=== PATIENT | female | born 1980 | race Caucasian/White ===

== ENCOUNTER 2022-04-16 11:12 | Day surgery (SDC) | payer OTHER ==
[2022-04-16] MEDS ORDERED: Xylocaine 1% Vial 30 ML PF IJ ONE (11:13)
[2022-04-16] MEDS ORDERED: Decadron 4 MG INJ IV ONE (11:13)
[2022-04-16] MEDS ORDERED: Sodium Chloride 0.9(Preservative Free) 10 ML IJ ONE (11:13)
[2022-04-16] MEDS ORDERED: Depo-Medrol 40 MG/ML IM ONE (11:13)
[2022-04-16] MEDS ORDERED: DIPRIVAN 200 MG/20 ML IV ONE (12:41)
[2022-04-16] MEDS ORDERED: Lactated Ringers 1,000 ML IV ONE (12:50)
--- NOTE | 2022-04-16 13:19 | XRAY ---
Indication: Bilateral piriformis injections. Intraoperative fluoroscopy provided for 29 seconds. 2 digital spot image submitted for interpretation demonstrates posterior needle tip projecting over the expected left and right piriformis muscle. Small amount of contrast injected for both needle tip placement. Correlate with intraoperative findings/report.
--- NOTE | 2022-04-16 13:19 | XRAY ---
Indication: Left L4-S1 transforaminal GEOFFREY. Intraoperative fluoroscopy provided for 17 seconds. 4 digital spot image submitted for interpretation demonstrates posterior needle tips projecting over the expected left L4 and L5 nerve roots. Small amount of contrast injected for needle tip placement. Correlate with intraoperative findings/report.
--- NOTE | 2022-04-16 14:28 | XRAY ---
29 seconds of fluoroscopy was used in surgery for bilateral piriformis injections.
--- NOTE | 2022-04-16 14:28 | XRAY ---
17 seconds of fluoroscopy was used in surgery for a left L4-S1 transforaminal GEOFFREY.
== END 2022-04-16 13:20 | disposition home or self-care (01) ==
LOC: SDC-PAIN 11:12
PROVIDERS: ATTEND Psychiatry & Neurology Pain Medicine
DX: M79.18 Myalgia, other site (principal); M54.16 Radiculopathy, lumbar region; R73.03 Prediabetes; Z79.899 Other long term (current) drug therapy
CPT/HCPCS: 20552; 64483; 64484; 72100; 72170; 77002; 77003; 81025; 82947; J1030; J1100; J2001; J2704

== ENCOUNTER 2022-05-15 09:13 | Day surgery (SDC) | payer OTHER ==
[2022-05-15] MEDS ORDERED: LIDOCAINE HCL 1% 50 MG/5 ML VL PF IJ ONE (09:14)
[2022-05-15] MEDS ORDERED: Pepcid 20 MG VIAL IV ONE (09:14)
[2022-05-15] MEDS ORDERED: Reglan 10 MG/2 ML ONE (10:38)
[2022-05-15] MEDS ORDERED: DIPRIVAN 200 MG/20 ML IV ONE (10:59)
--- NOTE | 2022-05-15 11:58 | XRAY ---
Indication: Bilateral L4-S1 MBB. Intraoperative fluoroscopy provided for 11 seconds. 2 digital spot image submitted for interpretation demonstrates posterior needle tips projecting over the expected left and right L4-S1 nerve roots. Correlate with intraoperative findings/report.
--- NOTE | 2022-05-15 12:40 | XRAY ---
11 seconds of fluoroscopy was used in surgery for a bilateral L4-S1 MBB.
[2022-05-15] MEDS ORDERED: Lactated Ringers 1,000 ML IV ONE (13:29)
== END 2022-05-15 11:25 | disposition home or self-care (01) ==
LOC: SDC-PAIN 09:13
PROVIDERS: ATTEND Psychiatry & Neurology Pain Medicine
DX: M47.816 Spondylosis without myelopathy or radiculopathy, lumbar region (principal); E11.9 Type 2 diabetes mellitus without complications; Z79.899 Other long term (current) drug therapy
CPT/HCPCS: 64493; 64494; 72020; 77002; 81025; 82947; J2001; J2704

== ENCOUNTER 2022-07-23 07:59 | Day surgery (SDC) | payer OTHER ==
[2022-07-23] MEDS ORDERED: BUPIVACAINE 0.5% VIAL IJ ONE (08:00)
[2022-07-23] MEDS ORDERED: Reglan 10 MG/2 ML ONE (09:06)
[2022-07-23] MEDS ORDERED: Pepcid 20 MG VIAL IV ONE (09:06)
[2022-07-23] MEDS ORDERED: DIPRIVAN 200 MG/20 ML IV ONE (10:03)
[2022-07-23] MEDS ORDERED: Xylocaine-Mpf 2% 5 Ml Vial ONE (10:06)
--- NOTE | 2022-07-23 11:31 | XRAY ---
Indication: Bilateral L4-S1 MBB. Intraoperative fluoroscopy provided for 10 seconds. Single digital spot image submitted for interpretation demonstrates posterior needle tips projecting over the expected left and right L4-S1 nerve roots. Correlate with intraoperative findings/report.
--- NOTE | 2022-07-23 11:36 | XRAY ---
10 seconds of fluoroscopy was used in surgery for a bilateral L4-S1 MBB.
[2022-07-23] MEDS ORDERED: Lactated Ringers 1,000 ML IV ONE (13:54)
== END 2022-07-23 10:40 | disposition home or self-care (01) ==
LOC: SDC-PAIN 07:59
PROVIDERS: ATTEND Psychiatry & Neurology Pain Medicine
DX: M47.816 Spondylosis without myelopathy or radiculopathy, lumbar region (principal); R73.03 Prediabetes; Z79.899 Other long term (current) drug therapy
CPT/HCPCS: 64493; 64494; 72020; 77002; 81025; 82947; J2704

== ENCOUNTER 2022-09-24 08:40 | Day surgery (SDC) | payer OTHER ==
[2022-09-24] MEDS ORDERED: BUPIVACAINE 0.5% VIAL IJ ONE (08:41)
[2022-09-24] MEDS ORDERED: LIDOCAINE HCL 1% 50 MG/5 ML VL PF IJ ONE (08:41)
[2022-09-24] MEDS ORDERED: Depo-Medrol 40 MG/ML IM ONE (08:41)
[2022-09-24 08:52] LABS: HCG URINE TEST NEGATIVE (NEGATIVE)
[2022-09-24] MEDS ORDERED: Reglan 10 MG/2 ML ONE (09:41)
[2022-09-24] MEDS ORDERED: Pepcid 20 MG VIAL IV ONE (09:41)
[2022-09-24] MEDS ORDERED: DIPRIVAN 200 MG/20 ML IV ONE ×2 (10:25→12:27)
--- NOTE | 2022-09-24 12:24 | XRAY ---
Indication: Right L4-S1 RFA. Intraoperative fluoroscopy provided for 26 seconds. 3 digital spot images submitted for interpretation demonstrates posterior needle tips projecting over the expected right L4-S1 nerve roots. Correlate with intraoperative findings/report.
--- NOTE | 2022-09-24 12:41 | XRAY ---
26 seconds of fluoroscopy was used in surgery for a right L4-S1 RFA.
[2022-09-24] MEDS ORDERED: Lactated Ringers 1,000 ML IV ONE (14:04)
== END 2022-09-24 11:00 | disposition home or self-care (01) ==
LOC: SDC-PAIN 08:40
PROVIDERS: ATTEND Psychiatry & Neurology Pain Medicine
DX: M47.816 Spondylosis without myelopathy or radiculopathy, lumbar region (principal); R73.03 Prediabetes; Z79.899 Other long term (current) drug therapy
CPT/HCPCS: 36415; 64635; 64636; 72100; 77002; 81025; 82947; J1030; J2001; J2704

== ENCOUNTER 2022-10-01 08:36 | Day surgery (SDC) | payer OTHER ==
[2022-10-01] MEDS ORDERED: Depo-Medrol 40 MG/ML IM ONE (08:37)
[2022-10-01] MEDS ORDERED: LIDOCAINE HCL 1% 50 MG/5 ML VL PF IJ ONE (08:37)
[2022-10-01] MEDS ORDERED: BUPIVACAINE 0.5% VIAL IJ ONE (08:37)
[2022-10-01] MEDS ORDERED: Reglan 10 MG/2 ML ONE (09:02)
[2022-10-01] MEDS ORDERED: Pepcid 20 MG VIAL IV ONE (09:02)
[2022-10-01 09:05] LABS: HCG URINE TEST NEGATIVE (NEGATIVE)
[2022-10-01] MEDS ORDERED: DIPRIVAN 200 MG/20 ML IV ONE (09:41)
[2022-10-01] MEDS ORDERED: Lactated Ringers 1,000 ML IV ONE (11:55)
--- NOTE | 2022-10-01 18:20 | XRAY ---
Indication: Left L4-S1 RFA. Intraoperative fluoroscopy provided for 21 seconds. 4 digital spot image submitted for interpretation demonstrates posterior needle tips projecting over the expected left L4-S1 nerve roots. Correlate with intraoperative findings/report.
--- NOTE | 2022-10-01 19:01 | XRAY ---
21 seconds of fluoroscopy was used in surgery for a left L4-S1 RFA.
== END 2022-10-01 10:15 | disposition home or self-care (01) ==
LOC: SDC-PAIN 08:36
PROVIDERS: ATTEND Psychiatry & Neurology Pain Medicine
DX: M47.817 Spondylosis without myelopathy or radiculopathy, lumbosacral region (principal); R73.03 Prediabetes; Z79.899 Other long term (current) drug therapy
CPT/HCPCS: 36415; 64635; 64636; 72100; 77002; 81025; 82947; J1030; J2001; J2704

== ENCOUNTER 2023-07-22 09:00 | Day surgery (SDC) | payer OTHER ==
[2023-07-22] MEDS ORDERED: LIDOCAINE HCL 2% 100 MG/5 ML IJ ONE (09:01)
[2023-07-22 09:52] LABS: HCG URINE TEST NEGATIVE (NEGATIVE)
[2023-07-22] MEDS ORDERED: Lactated Ringers 1,000 ML IV ONE (10:54)
[2023-07-22] MEDS ORDERED: DIPRIVAN 200 MG/20 ML IV ONE ×2 (10:59→11:11)
--- NOTE | 2023-07-22 11:28 | XRAY ---
Indication: Left C2-C4 MBB. Intraoperative fluoroscopy provided for 27 seconds. 3 digital spot image submitted for interpretation demonstrates posterior needle tips projecting over the expected left C2-C4 nerve roots. Correlate with intraoperative findings/report.
--- NOTE | 2023-07-22 12:06 | XRAY ---
27 seconds of fluoroscopy was used in surgery for a left C2-C4 MBB.
== END 2023-07-22 11:35 | disposition home or self-care (01) ==
LOC: SDC-PAIN 09:00
PROVIDERS: ATTEND Psychiatry & Neurology Pain Medicine
DX: M47.812 Spondylosis without myelopathy or radiculopathy, cervical region (principal); R73.03 Prediabetes
CPT/HCPCS: 64490; 64491; 72040; 77002; 81025; 82947; J2704

== ENCOUNTER 2023-11-04 07:54 | Day surgery (SDC) | payer OTHER ==
[2023-11-04] MEDS ORDERED: BUPIVACAINE 0.5% VIAL IJ ONE (07:55)
[2023-11-04 08:42] LABS: HCG URINE TEST NEGATIVE (NEGATIVE)
[2023-11-04] MEDS ORDERED: DIPRIVAN 200 MG/20 ML IV ONE ×2 (09:53→10:02)
--- NOTE | 2023-11-04 10:57 | XRAY ---
Indication: Left C2-C4 MBB. Intraoperative fluoroscopy provided for 31 seconds. 2 digital spot image submitted for interpretation demonstrates posterior needle tips projecting over the expected left C2-C4 nerve roots. Correlate with intraoperative findings/report.
--- NOTE | 2023-11-04 11:28 | XRAY ---
31 seconds of fluoroscopy was used in surgery for a left C2-C4 MBB.
[2023-11-04] MEDS ORDERED: Lactated Ringers 1,000 ML IV ONE (11:46)
== END 2023-11-04 10:35 | disposition home or self-care (01) ==
LOC: SDC-PAIN 07:54
PROVIDERS: ATTEND Psychiatry & Neurology Pain Medicine
DX: M47.812 Spondylosis without myelopathy or radiculopathy, cervical region (principal); E11.9 Type 2 diabetes mellitus without complications
CPT/HCPCS: 64490; 64491; 72040; 77002; 81025; 82947; J2704

== ENCOUNTER 2024-05-12 07:59 | Day surgery (SDC) | payer OTHER ==
[2024-05-12] MEDS ORDERED: Xylocaine-Mpf 2% 5 Ml Vial IJ ONE (08:00)
[2024-05-12 08:25] LABS: HCG URINE TEST NEGATIVE (NEGATIVE)
[2024-05-12] MEDS ORDERED: DIPRIVAN 200 MG/20 ML IV ONE (09:06)
--- NOTE | 2024-05-12 10:56 | XRAY ---
Indication: Right C2-C4 MBB. Intraoperative fluoroscopy provided for 25 seconds. 2 digital spot image submitted for interpretation demonstrates posterior needle tips projecting over the expected right C2-C4 nerve roots. Correlate with intraoperative findings/report.
--- NOTE | 2024-05-12 12:20 | XRAY ---
25 seconds of fluoroscopy was used in surgery for a right C2-C4 MBB.
== END 2024-05-12 09:35 | disposition home or self-care (01) ==
LOC: SDC-PAIN 07:59
PROVIDERS: ATTEND Psychiatry & Neurology Pain Medicine
DX: M47.812 Spondylosis without myelopathy or radiculopathy, cervical region (principal); E11.9 Type 2 diabetes mellitus without complications
CPT/HCPCS: 64490; 64491; 72040; 77002; 81025; 82947; J2704

== ENCOUNTER 2024-07-14 08:20 | Day surgery (SDC) | payer OTHER ==
[2024-07-14] MEDS ORDERED: BUPIVACAINE 0.5% VIAL IJ ONE (08:21)
[2024-07-14 08:44] LABS: HCG URINE TEST NEGATIVE (NEGATIVE)
[2024-07-14] MEDS ORDERED: propofoL IV ONE (10:01)
[2024-07-14] MEDS ORDERED: Hydromorphone 1 mg/ml Injection ONE (10:39)
--- NOTE | 2024-07-14 11:56 | XRAY ---
Indication: Right C2-C4 MBB. Intraoperative fluoroscopy provided for 29 seconds. 2 digital spot image submitted for interpretation demonstrates posterior needle tips projecting over expected right C2-C4 nerve roots. Correlate with intraoperative findings/report.
--- NOTE | 2024-07-14 13:13 | XRAY ---
29 seconds of fluoroscopy was used in surgery for a right C2-C4 MBB.
== END 2024-07-14 11:00 | disposition home or self-care (01) ==
LOC: SDC-PAIN 08:20
PROVIDERS: ATTEND Psychiatry & Neurology Pain Medicine
DX: M47.812 Spondylosis without myelopathy or radiculopathy, cervical region (principal); R73.03 Prediabetes
CPT/HCPCS: 64491; 64492; 72040; 77002; 81025; 82947; J1171; J2704

== ENCOUNTER 2024-08-17 07:52 | Day surgery (SDC) | payer OTHER ==
[2024-08-17] MEDS ORDERED: LIDOCAINE HCL 1% AMPUL 5 ML IJ ONE (07:53)
[2024-08-17] MEDS ORDERED: dexAMETHasone sodium phosphate IJ ONE (07:53)
[2024-08-17] MEDS ORDERED: BUPIVACAINE 0.5% VIAL IJ ONE (07:53)
[2024-08-17] MEDS ORDERED: Lactated Ringers 500 ML IV ONE (08:38)
[2024-08-17 08:46] LABS: HCG URINE TEST NEGATIVE (NEGATIVE)
[2024-08-17] MEDS ORDERED: propofoL IV ONE (09:23)
== END 2024-08-17 10:19 | disposition home or self-care (01) ==
LOC: SDC-PAIN 07:52
PROVIDERS: ATTEND Psychiatry & Neurology Pain Medicine
DX: M47.812 Spondylosis without myelopathy or radiculopathy, cervical region (principal); E11.9 Type 2 diabetes mellitus without complications
CPT/HCPCS: 64633; 64634; 81025; 82947; J1100; J2704

== ENCOUNTER 2025-02-22 08:41 | Day surgery (SDC) | payer OTHER ==
[2025-02-22] MEDS ORDERED: LIDOCAINE HCL 1% 50 MG/5 ML VL IJ ONE (08:42)
[2025-02-22] MEDS ORDERED: BUPIVACAINE 0.5% VIAL IJ ONE (08:42)
[2025-02-22 09:11] LABS: HCG URINE TEST NEGATIVE (NEGATIVE)
[2025-02-22] MEDS ORDERED: propofoL IV ONE (10:18)
[2025-02-22] MEDS ORDERED: Lactated Ringers 1,000 ML IV ONE (10:35)
--- NOTE | 2025-02-22 12:53 | XRAY ---
Indication: Left C2-C4 RFA. Intraoperative fluoroscopy provided for 33 seconds. 5 digital spot images submitted for interpretation demonstrates posterior needle tips projecting over expected left C2-C4 nerve roots. Correlate with intraoperative findings/report.
--- NOTE | 2025-02-22 12:57 | XRAY ---
33 seconds of fluoroscopy was used in surgery for a left C2-C4 RFA.
== END 2025-02-22 10:55 | disposition home or self-care (01) ==
LOC: SDC-PAIN 08:41
PROVIDERS: ATTEND Psychiatry & Neurology Pain Medicine
DX: M47.812 Spondylosis without myelopathy or radiculopathy, cervical region (principal); E11.9 Type 2 diabetes mellitus without complications